=== PATIENT | female | born 1945 | race Caucasian/White ===

== ENCOUNTER 2019-07-17 09:25 | Inpatient (IN) | payer MEDICARE ==
[~2019-07-17] VITALS: Ht 175.3 cm; Wt 73.3 kg
--- NOTE | 2019-07-17 09:37 | NUR ---
DISCUSSED S/S WITH DR. OLMSTEAD. CODE NEURO ACTIVATED.
--- NOTE | 2019-07-17 09:42 | NUR ---
TASK RN: ERICK ESTABLISHED, LABS DRAWN, PATIENT TO CT VIA RVAL AT THIS TIME WITH PRIMARY RN, MADDIE. CODE NEURO CALLED AT 0933.
[2019-07-17 09:52] LABS: BASOPHILS # (AUTO) 0.03 x10^3/uL (0-0.1); BASOPHILS % (AUTO) 1 % (0-1); EOSINOPHILS # (AUTO) 0.24 x10^3/uL (0-0.4); EOSINOPHILS % (AUTO) 3 % (1-7); LYMPHOCYTES # (AUTO) 1.62 x10^3/uL (1-3.4); LYMPHOCYTES % (AUTO) 22 % (22-44); MD NO; MEAN CORPUSCULAR HEMOGLOBIN 30.8 pg (27.0-34.8); MEAN CORPUSCULAR HGB CONC 33.1 g/dL (32.4-35.8); MEAN PLATELET VOLUME 9.5 fL (7.4-10.4); MONOCYTES # (AUTO) 0.68 x10^3/uL (0.2-0.8); MONOCYTES % (AUTO) 9 % (2-9); NEUTROPHILS # (AUTO) 4.89 x10^3/uL (1.8-6.8); NEUTROPHILS % (AUTO) 66 % (42-75); PLATELET COUNT 216 x10^3/uL (130-400); RED BLOOD COUNT 5.55 x10^6/uL (3.82-5.3); RED CELL DISTRIBUTION WIDTH 14.2 % (9.6-15.2)
[2019-07-17] MEDS ORDERED: OMNIPAQUE 350 MG/ML, 100ML BOTTLE ONE (10:06)
[2019-07-17] MEDS ORDERED: SYNTHROID (10:07)
[2019-07-17] MEDS ORDERED: LISINOPRIL (10:07)
--- NOTE | 2019-07-17 10:08 | NUR ---
LATE NOTE ENTRY DUE TO PT CARE. Pt presents to ED with family with c/o sudden onset amnesia beginning at 0830 today. Pt's son states, "She just forgot everything that happened in the last week, said she felt funny, didn't know where her was, he is currently in the ICU." Pt presents to ED room and ambulates from wheelchair with steady gait and balance. Pt has no observed focal defecits, all extremities strong equally, no facial droop, no slurred speech, and no vision changes. Pt transported on gurney to CT from ED room connected to gynaecological oncologist. Pt had PIV established prior to transport.
--- NOTE | 2019-07-17 10:11 | NUR ---
Pt resting on [facility] with neuro consult with Dr. Spears. Kandice, RN at bedside, and family at bedside. Pt connected to NIBP cuff, contious pulse ox monitor, and curber. Bedrails up x 2 and call light within reach.
[2019-07-17 10:13] LABS: INTERNATIONAL NORMALIZED RATIO 0.93 (0.93-1.1); PROTHROMBIN TIME 9.8 Seconds (9.6-11.5)
[2019-07-17] MEDS ORDERED: ASPIRIN 81 MG TABLET CHEW ONE (10:28)
[2019-07-17] MEDS ORDERED: ASPIRIN 81 MG TABLET CHEW PO ONE (11:00)
[2019-07-17] MEDS ORDERED: SODIUM CHLORIDE FLUSH 10ML SYR IVF PRN (11:00)
--- NOTE | 2019-07-17 11:48 | NUR ---
Provided report to CADY Knox. All questions answered. Pt ready to transfer to floor from ED. NADN. No needs expressed.
--- NOTE | 2019-07-17 12:31 | NUR ---
Pt transfered from ED to floor and left with all personal belongings. NADN. No needs expressed.
[2019-07-17 13:07] VITALS: BP 171/82
[2019-07-17] MEDS ORDERED: LABETALOL 5MG/ML, 20ML IV PRN (15:00)
[2019-07-17] MEDS: SODIUM CHLORIDE 0.9% 1,000 ML IV SCH (15:59)
[2019-07-17 16:19] LABS: HEMOGLOBIN A1C 5.5 % (4.2-6.3)
[2019-07-17 19:51] VITALS: BP 133/77
[2019-07-18 02:50] VITALS: BP 127/82
[2019-07-18] MEDS: SODIUM CHLORIDE 0.9% 1,000 ML IV SCH (04:54)
[2019-07-18 06:25] LABS: LDL/HDL RATIO 2.7 (0.5-3.0)
[2019-07-18 07:06] VITALS: BP 154/96
[2019-07-18] MEDS ORDERED: ASPIRIN 81 MG TABLET CHEW PO/NG SCH (09:00)
[2019-07-18] MEDS ORDERED: ENOXAPARIN 40 MG/0.4 ML SQ SCH (09:00)
[2019-07-18] MEDS ORDERED: LISI-420 PO (09:21)
[2019-07-18] MEDS ORDERED: HYDR25TA6 PO (09:21)
[2019-07-18] MEDS ORDERED: LEVO112T56 PO (09:21)
[2019-07-18] MEDS ORDERED: LISINOPRIL 20 MG TABLET PO SCH (11:00)
[2019-07-18] MEDS ORDERED: LEVOTHYROXINE 88 MCG TABLET PO SCH (11:00)
[2019-07-18 13:05] VITALS: BP 125/78
[2019-07-18] MEDS ORDERED: SODIUM CHLORIDE 0.9% 1,000 ML IV SCH (15:30)
[2019-07-18] MEDS ORDERED: ASPI-515 PO/NG (15:39)
[2019-07-18] MEDS ORDERED: LEVO88TA2 PO (15:39)
[2019-07-18] MEDS ORDERED: ATOR40TA78 PO (15:39)
== END 2019-07-18 16:50 | disposition home or self-care (01) | DRG 70 ==
LOC: ED 10:55 → EDIP 11:00 → 4EST 13:13 → DCLOUNGE 07-18 16:39
PROVIDERS: ADMIT Internal Medicine; ATTEND Internal Medicine
DX: G45.4 Transient global amnesia (principal); G93.41 Metabolic encephalopathy; E87.1 Hypo-osmolality and hyponatremia; I10 Essential (primary) hypertension; E03.9 Hypothyroidism, unspecified; E05.90 Thyrotoxicosis, unspecified without thyrotoxic crisis or storm; E78.5 Hyperlipidemia, unspecified; Z82.49 Family history of ischemic heart disease and other diseases of the circulatory system; J32.9 Chronic sinusitis, unspecified
CPT/HCPCS: 36415; 70450; 70496; 70498; 70551; 80047; 80061; 82962; 83036; 84439; 84443; 85025; 85610; 85730; 93005; 93306; G0378; J1650; Q9967; 92523-GN; J7030